=== PATIENT | female | born 1945 | race Caucasian/White ===

== ENCOUNTER 2018-05-25 10:42 | Day surgery (SDC) | payer OTHER ==
[2018-05-25] VITALS (15 sets, daily range): BP systolic 82–148; BP diastolic 47–94; PULSE 52–69; RESP 15–26; Ht 154.9 cm; Wt 105.0 kg
[~2018-05-25] VITALS: Ht 154.9 cm; Wt 105.0 kg
[~2018-05-25 10:42] MED LIST: ALBU8.5H8 IH; ASPI-650 PO; ATOR80TA18 PO; BUPR-165 PO; ESOM40CA PO; ESTR50G TD; FOLI-49 PO; GABA300C16 PO; HYDR200T39 PO; HYDR25TA6 PO; HYDR4TAB PO; LAS20 PO; LEVA15HF6 IH; LISI40TA3 PO; MELO15TA30 PO; METH-378 PO; METH1POW21 MC; METH2.5T33 PO; NITR0.4T39 TD; OXCA300T41 PO; PRAS10TA6 PO; SULF500T48 PO; TEST5POW3 TD; TIOT18CA IH; VERA240T94 PO; VIC PO; [UNRECOGNIZED DRUG - CODE] PO; [UNRECOGNIZED DRUG - CODE] PO; [UNRECOGNIZED DRUG - OTHER] PO
[2018-05-25] MEDS ORDERED: ONDANSETRON 4 MG INJ IV STA (11:11)
[2018-05-25] MEDS ORDERED: ONDANSETRON 4 MG INJ ONE (11:18)
[2018-05-25] MEDS ORDERED: ASPI81TA52 PO (11:33)
[2018-05-25] MEDS ORDERED: PANT40TA3 PO ×2 (11:33→11:41)
[2018-05-25] MEDS ORDERED: ATOR-2 PO (11:34)
[2018-05-25] MEDS ORDERED: BACL10TA PO (11:35)
[2018-05-25] MEDS ORDERED: BUPR150T18 PO (11:36)
[2018-05-25] MEDS ORDERED: CELE100C PO (11:36)
[2018-05-25] MEDS ORDERED: HYDR200T5 PO (11:38)
[2018-05-25] MEDS ORDERED: METO-319 PO ×2 (11:38→11:45)
[2018-05-25] MEDS ORDERED: CITA40TA6 PO (11:39)
[2018-05-25] MEDS ORDERED: LISI40TA3 PO (11:39)
[2018-05-25] MEDS ORDERED: MONT10TA24 PO (11:40)
[2018-05-25] MEDS ORDERED: POTA20TA15 PO (11:40)
[2018-05-25] MEDS ORDERED: THYR120T PO (11:41)
[2018-05-25] MEDS ORDERED: FURO-110 PO ×2 (11:43→11:45)
[2018-05-25] MEDS ORDERED: MET25 PO (11:44)
[2018-05-25] MEDS ORDERED: METH10TA2 PO (11:44)
[2018-05-25] MEDS ORDERED: NITR0.4T39 SL (11:46)
[2018-05-25] MEDS ORDERED: ENOX30DI2 SC (11:46)
[2018-05-25] MEDS ORDERED: HEPARIN 1000 UNITS/ML 10 ML INJ ONE (13:37)
[2018-05-25] MEDS ORDERED: IODIXANOL LOCM 100 ML BTL ONE (13:37)
[2018-05-25] MEDS ORDERED: LIDOCAINE 1% (MDV) 20 ML INJ ONE (13:37)
[2018-05-25] MEDS ORDERED: MIDAZOLAM 1 MG/ML 2 ML INJ ONE (13:38)
[2018-05-25] MEDS ORDERED: NITROGLYCERIN (IC) 100 MCG/ML INJ ONE (13:39)
[2018-05-25] MEDS ORDERED: VERAPAMIL 5 MG INJ ONE (13:39)
[2018-05-25] MEDS ORDERED: FENTAnyl 50 MCG/ML VIAL ONE (13:39)
[2018-05-25] MEDS ORDERED: BIVALIRUDIN 250MG /NS 50 ML 50 ML IVPB ONE (14:06)
--- NOTE | 2018-05-25 15:16 | OPR ---
Date/Time of Note Date/Time of Note DATE: 05/25/18 TIME: 15:07 Operative Report Procedure Date: May 25, 2018 Preoperative Diagnosis NSTEMI, CHF, CAD Postoperative Diagnosis same Operation/Procedure Performed see details Surgeon see signature line Chief Technician none Anesthesia Type: moderate sedation Estimated Blood Loss: minimal Transfusion none Specimen none Grafts/Implants none Complications none Procedure Description Procedure Date:05/25/2018 Supervisor Matrix/surgeon: Wade Ortega MD. Procedures Performed: 1)Left heart catheterization with selective left and right coronary angiography. 2)iFR of mid RCA (negative/normal) Pre-operative Diagnosis:CHF, NSTEMI, flash pulmonary edema Post-operative Diagnosis:same Indications: 72 yo F with chronic diastolic CHF, CAD s/p prior PCI, HTN, who presented with chest pressure and respiratory failure with flash pulm edema. Minimal trop elevation but concern for ischemic MR causing flash pulmonary edema. Description of Procedure: After informed consent, the patient was brought to the cardiac catheterization lab. The procedure site was prepped and draped in usual manner. The patient was premedicated with versed 2 mg and fentanyl 50 mcg. 2 mL lidocaine was injected into the right wrist. Next using the posterior wall technique, the 6/5 wallisian sheath was inserted into the right radial artery. Next using the JL3.5 and JR4, selective angiography of the left and right coronary arteries were obtained. The pigtail was then advanced into the ventricle and hemodynamics obtained. Left ventricle angiography was not obtained. The decision was made to proceed with iFR of the RCA. A 6 wallisian JR4 guide was advanced and engaged into the right coronary artery. After appropriate anticoagulation the iFR wire was equalized and advanced past the lesion. iFR x 2 were both 0.98 which is negative Next all equipment was removed and hemostasis was achieved by TR band. Findings: Anatomy/Hemodynamics: Left main:normal LAD:luminal irregularities Diagonal:luminal irregularities Ramus;: prox stent patent Circumflex:codominant vessel with distal 30-40% Obtuse marginal:luminal irregularities RCA:mid 50% PDA:luminal irregularities PLV:luminal irregularities LV angiography:not done LV-Ao:no gradient LVEDP:15 mmHg Contrast used:65mL Medications used: Versed 2 Fentanyl 50 Radial cocktail: heparin 5000 units, NTG 200mcg, verapamil 2.5mg Angiomax Equipment used: 6 wallisian JR 4 guide iFR wire Estimated blood loss<10 mL. Specimen: none Grafts/implants: none Complications: none Assessment: Unstable angina/NSTEMI: patent ramus stent and iFR negative intermediate mid RCA lesion Flash pulm edema HTN crisis Acute on chronic diastolic CHF Plan: -transfer back to [facility] -BP management and further workup there -continue melchor DOW VAHAN May 25, 2018 15:16
[2018-05-25] MEDS ORDERED: ACETAMINOPHEN 325 MG TAB PO ONE (16:00)
== END 2018-05-25 18:51 | disposition other institution (70) ==
LOC: CCL 10:42 → SDS 10:42 → CCL 18:51
PROVIDERS: ATTEND Internal Medicine Interventional Cardiology
DX: I21.4 Non-ST elevation (NSTEMI) myocardial infarction (principal); I25.110 Atherosclerotic heart disease of native coronary artery with unstable angina pectoris; I11.0 Hypertensive heart disease with heart failure; I50.33 Acute on chronic diastolic (congestive) heart failure; J44.9 Chronic obstructive pulmonary disease, unspecified
CPT/HCPCS: 93458; 93571; J0583; J1644; J2250; J2405; J3010; Q9967